=== PATIENT | male | born 1945 | race Caucasian/White ===

== ENCOUNTER 2018-04-23 19:30 | Inpatient (IN) | payer MEDICARE, MEDICAID ==
[~2018-04-23] VITALS: Ht 182.9 cm; Wt 94.3 kg
--- NOTE | 2018-04-23 19:56 | NUR ---
pt bibra from snf to er bed 13. here for medical clearance prior to [facility] psych admission. pt is already on 9340 hold for gto/gd. hold written at 1700. vss. awaiting md hassan.
--- NOTE | 2018-04-23 19:57 | NUR ---
dr constantino at bedside for eval.
--- NOTE | 2018-04-23 20:05 | NUR ---
Hien harrison in [facility] - 04/23/18 at 2056 by PIPER asphalt plant laborer at bedside for rajinderal.
--- NOTE | 2018-04-23 20:05 | NUR ---
powerhouse laborer at bedside for blood draw.
[2018-04-23 20:09] LABS: BASOPHILS % (AUTO) 0.6 % (0.0-2.0); EOSINOPHILS % (AUTO) 2.3 % (0.0-6.0); HEMATOCRIT 36 % (39-51); HEMOGLOBIN 12.4 g/dL (13.5-17.5); LYMPHOCYTES # (AUTO) 1.2 /CMM (0.8-4.8); LYMPHOCYTES % (AUTO) 19.3 % (20.0-44.0); MEAN CORPUSCULAR HEMOGLOBIN 32 PG (26.0-33.0); MEAN CORPUSCULAR HGB CONC 34 g/dl (31.0-36.0); MEAN CORPUSCULAR VOLUME 92 fL (80-96); MONOCYTES # (AUTO) 0.5 /CMM (0.1-1.30); MONOCYTES % (AUTO) 8.7 % (2.0-12.0); NEUTROPHILS # (AUTO) 4.4 /CMM (1.8-8.9); NEUTROPHILS % (AUTO) 69.1 % (43.0-81.0); PLATELET COUNT (AUTO) 180 /CMM (150-450); RDW COEFFICIENT OF VARIATION 12.4 (11.5-15.0); RED BLOOD CELL COUNT(AUTO) 3.93 MIL/uL (4.5-6.0); WHITE BLOOD COUNT (AUTO) 6.2 K/uL (4.3-11.0)
--- NOTE | 2018-04-23 20:25 | NUR ---
pt still unable to provide urine sample at this time.
[2018-04-23 20:32] LABS: ALANINE AMINOTRANSFERASE 19 U/L (12-78); ALBUMIN 2.9 g/dL (3.4-5.0); ALCOHOL, BLOOD < 3 mg/dL (0-0); ALKALINE PHOSPHATASE 74 U/L (46-116); ASPARTATE AMINOTRANSFERASE 15 U/L (15-37); BILIRUBIN,DIRECT 0.1 mg/dL (0.0-0.2); BILIRUBIN,TOTAL 0.3 mg/dL (0.2-1.0); CALCIUM, SERUM 8.8 mg/dL (8.5-10.1); CARBON DIOXIDE 32 mmol/L (21-32); CHLORIDE 107 mmol/L (98-107); CREATININE 1.2 mg/dL (0.6-1.3); GLUCOSE 132 mg/dL (74-106); SODIUM SERUM 141 mmol/L (136-145); TOTAL PROTEIN, SERUM 5.9 g/dL (6.4-8.2); UREA NITROGEN, BLOOD 26 mg/dL (7-18)
[2018-04-23 20:39] LABS: SALICYLATE 0.6 mg/dL (2.8-20.0)
[2018-04-23 20:40] LABS: ACETAMINOPHEN 0 ug/ml (10-30)
--- NOTE | 2018-04-23 20:56 | NUR ---
PT ASSIGNED GPS 217
--- NOTE | 2018-04-23 21:06 | NUR ---
report given to jayla. pt awaiting transfer to floor.
[2018-04-23] MEDS ORDERED: MAG HYDROX/AL HYDROX/SIMETH 30 ML UDC PO PRN ×2 (22:00→23:30)
[2018-04-23] MEDS ORDERED: TEMAZEPAM 7.5 MG CAPSULE PO PRN ×2 (22:00→23:30)
[2018-04-23] MEDS ORDERED: MAGNESIUM HYDROXIDE 30 ML UDC PO PRN ×2 (22:00→23:30)
[2018-04-23] MEDS ORDERED: LORAZEPAM 0.5 MG TABLET PO PRN (22:00)
[2018-04-23] MEDS ORDERED: ACETAMINOPHEN 325 MG TABLET PO PRN ×2 (22:00→23:30)
[2018-04-23] MEDS ORDERED: SERT25TA5 (22:38)
[2018-04-23] MEDS ORDERED: DONE5TAB34 (22:38)
[2018-04-23] MEDS ORDERED: METF500T6 (22:38)
[2018-04-23] MEDS ORDERED: DIVA125C5 (22:38)
[2018-04-23] MEDS ORDERED: MEMA10TA21 (22:38)
[2018-04-23] MEDS ORDERED: ATOR20TA (22:38)
[2018-04-23] MEDS ORDERED: AMLO5TAB2 (22:38)
[2018-04-23] MEDS ORDERED: TAMS0.4C34 (22:38)
[2018-04-23] MEDS ORDERED: FOLI1TAB16 (22:38)
[2018-04-23] MEDS ORDERED: ALBU1.257 IH (22:42)
[2018-04-23] MEDS ORDERED: SACC250C PO (22:42)
[2018-04-23] MEDS ORDERED: ASPI-605 PO (22:42)
[2018-04-23] MEDS ORDERED: CARV6.25 PO (22:42)
[2018-04-23] MEDS ORDERED: DOCU100C36 PO (22:42)
[2018-04-23] MEDS ORDERED: DUTA0.5C PO (22:44)
--- NOTE | 2018-04-23 23:00 | NUR ---
GPS RN NOTES: PT. SEEN BY DR. VICK AND NOTIFIED VIRGEN / STATUS , NEW ORDERS RECIVED FROM DR. VICK POL, NEW ORDES RECEIVED AND CARRIED OUT .
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
--- NOTE | 2018-04-23 23:29 | NUR ---
GPS RN NOTES PT. REFUSED BLOOD SUGAR CHECK FOR ADMISSION PROCESS AND REFUSED SKIN ASSESSMENT , ENCOURAGED FOR STILL REFUSED AND PT. BEHAVIOR VERY AGGRESSIVE, UNCOOPERTIVE , WILL CONTINUE TO ENCOURAGED TO COMPLY WITH MD REGIMEN
[2018-04-23] MEDS ORDERED: DEXTROSE 50%-WATER 50 ML DISP.SYRIN IV PRN (23:30)
[2018-04-24 00:12] VITALS: BP 132/75
[2018-04-24] MEDS ORDERED: OLANZAPINE 10 MG VIAL IM ONE (00:30)
--- NOTE | 2018-04-24 00:30 | NUR ---
GPS RN NOTES PT. BEHAVIOR WAS VERY AGGRESSIVE YELLING SCRAMING KICKING HITING, NOT FOLLOWING ANY REDIRECTIONS , NOTIFIED DR. RENE FOR PT. BEHAVIOR, NEW ORDER RECEIVED ZYPREXA 5MG IM AND NEW ORDERS RECEIVED AND CARRIED OUT .
--- NOTE | 2018-04-24 00:44 | NUR ---
GPS RN NOTES PT. BEHAVIOR VERY AGGRESSIVE YELLING SCRAMING KICKING HITING, NOT FOLLOWING ANY REDIRECTIONS , ZYPREXA 5MG IM GIVEN PER MD JEREZ, PT. TOLERATING WELL NO ACUTE DISTRESS NOTED, WILL CONTINUE TO MONITOR .
--- NOTE | 2018-04-24 00:45 | NUR ---
GPS RN NOTES CHARGE NURSE NOTIFIED PT. DAUGHTER CLIFF, REGARDING ZYPREXA IM 5 MG OF GIVEN DUE TO PT. VERY AGGRESSIVE UNCOOPERTIVE BEHAVIOR.
[2018-04-24] MEDS ORDERED: ALBUTEROL HALF STRENGTH 1.25 MG/3 ML VIAL.NEB IH PRN (01:00)
[2018-04-24] MEDS: BLOOD SUGAR DIAGNOSTIC 1 EACH STRIP IN SCH ×4 (07:53→22:00)
[2018-04-24 08:00] VITALS: BP 129/69
[2018-04-24] MEDS: DOCUSATE SODIUM 100 MG CAPSULE PO SCH (08:16)
[2018-04-24] MEDS: DONEPEZIL 5 MG TABLET PO SCH (08:16)
[2018-04-24] MEDS: ASPIRIN EC 81 MG TABLET.DR PO SCH (08:16)
[2018-04-24] MEDS: DUTASTERIDE (0.5 MG) 0.5 MG CAPSULE PO SCH (08:16)
[2018-04-24] MEDS: TAMSULOSIN 0.4 MG CAP.SR.24H PO SCH (08:16)
[2018-04-24] MEDS: CARVEDILOL 6.25 MG TABLET PO SCH ×2 (08:16→17:03)
[2018-04-24] MEDS: AMLODIPINE BESYLATE 5 MG TABLET PO SCH (08:17)
[2018-04-24] MEDS: MEMANTINE HCL 5 MG TABLET PO SCH (08:17)
[2018-04-24] MEDS: METFORMIN 500 MG TABLET PO SCH ×2 (08:17→17:03)
[2018-04-24] MEDS: FOLIC ACID 1 MG TABLET PO SCH (08:17)
[2018-04-24] MEDS: ACIDOPHILUS/BULGARICUS 1 EACH GRAN.PACK PO SCH ×2 (08:25→08:26)
[2018-04-24] MEDS: ACIDOPHILUS/BULGARICUS 1 EACH TAB.CHEW PO SCH (08:57)
[2018-04-24 10:45] LABS: CREATININE 1.1 mg/dL (0.6-1.3)
[2018-04-24 10:51] LABS: CHOLESTEROL 152 mg/dL (<200); HDL CHOLESTEROL 47 mg/dL (40-60); LDL 90 mg/dL (0-99); TRIGLYCERIDES 112 mg/dL (30-150)
--- NOTE | 2018-04-24 13:57 | NUR ---
DR. RENE GAVE AN ORDER FOR 1:1 FOR AGGRESSIVE BEHAVIOR AND NOT FOLLOWING DIRECTION.
--- NOTE | 2018-04-24 15:08 | NUR ---
INITIAL DISCHARGE PLAN: Per pts daughter Nathaly Ambrose [phone] pt will return to [facility] Address: [address], [place] [address] . SW confirmed with NANCY Melton at [facility] who confirmed pt will be accepted back to facility once stable for discharge. SW will help form a safe and proper discharge in collaboration with .
[2018-04-24 16:00] VITALS: BP 135/59
[2018-04-24] MEDS: LORAZEPAM 0.5 MG TABLET PO PRN ×2 (16:09→17:03)
[2018-04-24] MEDS: busPIRone 5 MG TABLET PO SCH (17:03)
[2018-04-24] MEDS: VALPROIC ACID 250 MG/5 ML UDC PO SCH ×2 (17:04→21:00)
--- NOTE | 2018-04-24 19:19 | NUR ---
Pt combative, aggressive, uncooperative when he is awake. refuse accucheck breakfast, lunch and dinner.
--- NOTE | 2018-04-24 19:21 | NUR ---
endorsed to credit relationship manager nurseherminia rn to show ekg to assembler billiard table for review.
[2018-04-24 20:00] VITALS: BP 159/88
[2018-04-24] MEDS: BENZTROPINE MESYLATE (1 MG) 1 MG TABLET PO SCH (21:00)
[2018-04-24] MEDS: risperiDONE-M 0.5 MG TAB.RAPDIS PO SCH (21:00)
[2018-04-24] MEDS: TEMAZEPAM 7.5 MG CAPSULE PO PRN (21:01)
[2018-04-24] MEDS: ATORVASTATIN 10 MG TABLET PO SCH (21:08)
[2018-04-25] MEDS: CARVEDILOL 6.25 MG TABLET PO SCH ×2 (09:00→17:40)
[2018-04-25] MEDS: AMLODIPINE BESYLATE 5 MG TABLET PO SCH (09:00)
[2018-04-25] MEDS: METFORMIN 500 MG TABLET PO SCH ×2 (09:00→17:39)
[2018-04-25] MEDS: busPIRone 5 MG TABLET PO SCH ×3 (09:13→17:32)
[2018-04-25] MEDS: BLOOD SUGAR DIAGNOSTIC 1 EACH STRIP IN SCH ×4 (09:17→21:10)
[2018-04-25] MEDS: DONEPEZIL 5 MG TABLET PO SCH (09:20)
[2018-04-25] MEDS: MEMANTINE HCL 5 MG TABLET PO SCH (09:20)
[2018-04-25] MEDS: VALPROIC ACID 250 MG/5 ML UDC PO SCH ×3 (09:21→21:10)
[2018-04-25] MEDS: FOLIC ACID 1 MG TABLET PO SCH (09:25)
[2018-04-25] MEDS: TAMSULOSIN 0.4 MG CAP.SR.24H PO SCH (09:25)
[2018-04-25] MEDS: ASPIRIN EC 81 MG TABLET.DR PO SCH (09:25)
--- NOTE | 2018-04-25 09:25 | NUR ---
GPS RN NOTES PATIENT REFUSED BLOOD PRESSURE TAKEN AND SOME MEDICATIONS.
[2018-04-25] MEDS: DUTASTERIDE (0.5 MG) 0.5 MG CAPSULE PO SCH (09:26)
[2018-04-25] MEDS: DOCUSATE SODIUM 100 MG CAPSULE PO SCH (09:26)
[2018-04-25] MEDS: ACIDOPHILUS/BULGARICUS 1 EACH TAB.CHEW PO SCH (09:31)
[2018-04-25 16:07] VITALS: BP 125/60
[2018-04-25 20:00] VITALS: BP 141/75
[2018-04-25] MEDS: ATORVASTATIN 10 MG TABLET PO SCH (21:10)
[2018-04-25] MEDS: BENZTROPINE MESYLATE (1 MG) 1 MG TABLET PO SCH (21:10)
[2018-04-25] MEDS: risperiDONE-M 0.5 MG TAB.RAPDIS PO SCH (21:10)
[2018-04-25] MEDS: TEMAZEPAM 7.5 MG CAPSULE PO PRN (22:22)
[2018-04-26] MEDS: BLOOD SUGAR DIAGNOSTIC 1 EACH STRIP IN SCH ×4 (07:59→22:27)
[2018-04-26] MEDS: DONEPEZIL 5 MG TABLET PO SCH (08:00)
[2018-04-26] MEDS: busPIRone 5 MG TABLET PO SCH ×3 (08:00→16:51)
[2018-04-26] MEDS: TAMSULOSIN 0.4 MG CAP.SR.24H PO SCH (08:00)
[2018-04-26] MEDS: ASPIRIN EC 81 MG TABLET.DR PO SCH (08:00)
[2018-04-26] MEDS: FOLIC ACID 1 MG TABLET PO SCH (08:00)
[2018-04-26] MEDS: VALPROIC ACID 250 MG/5 ML UDC PO SCH ×3 (08:00→20:00)
[2018-04-26] MEDS: METFORMIN 500 MG TABLET PO SCH ×2 (08:00→16:51)
[2018-04-26] MEDS: DOCUSATE SODIUM 100 MG CAPSULE PO SCH (08:00)
[2018-04-26] MEDS: DUTASTERIDE (0.5 MG) 0.5 MG CAPSULE PO SCH (08:00)
[2018-04-26] MEDS: CARVEDILOL 6.25 MG TABLET PO SCH ×2 (08:07→16:51)
[2018-04-26] MEDS: AMLODIPINE BESYLATE 5 MG TABLET PO SCH (08:08)
[2018-04-26] MEDS: ACIDOPHILUS/BULGARICUS 1 EACH TAB.CHEW PO SCH (08:08)
[2018-04-26 08:10] VITALS: BP 124/57
[2018-04-26] MEDS: INSULIN REGULAR, HUMAN 100 UNIT/ML 3 ML VIAL SQ PRN (08:12)
[2018-04-26] MEDS: LORAZEPAM 0.5 MG TABLET PO PRN (12:02)
[2018-04-26 16:00] VITALS: BP 105/58
[2018-04-26 18:59] LABS: ALANINE AMINOTRANSFERASE 23 U/L (12-78); ALBUMIN 3.1 g/dL (3.4-5.0); ALKALINE PHOSPHATASE 76 U/L (46-116); ASPARTATE AMINOTRANSFERASE 19 U/L (15-37); BILIRUBIN,TOTAL 0.4 mg/dL (0.2-1.0); CALCIUM, SERUM 8.8 mg/dL (8.5-10.1); CARBON DIOXIDE 28 mmol/L (21-32); CHLORIDE 108 mmol/L (98-107); CREATININE 1.4 mg/dL (0.6-1.3); GLUCOSE 113 mg/dL (74-106); MAGNESIUM 1.6 mg/dL (1.8-2.4); POTASSIUM 3.8 mmol/L (3.5-5.1); SODIUM SERUM 146 mmol/L (136-145); TOTAL PROTEIN, SERUM 6.2 g/dL (6.4-8.2); UREA NITROGEN, BLOOD 28 mg/dL (7-18)
[2018-04-26 19:08] LABS: APPEARANCE,URINE CLEAR (CLEAR); BILIRUBIN,URINE 1+ (NEGATIVE); BLOOD, URINE TRACE Ery/uL (NEGATIVE); COLOR,URINE DARK YELLO (YELLOW); KETONES,URINE TRACE (NEGATIVE); LEUKOCYTE ESTERASE ,URINE TRACE (NEGATIVE); NITRITE, URINE NEGATIVE (NEGATIVE); PH,URINE 5.5 (5.0-8.0); PROTEIN,URINE TRACE mg/dl (NEGATIVE); UGLUCOSE NEGATIVE (NEGATIVE)
[2018-04-26 19:51] LABS: BASOPHILS % (AUTO) 0.3 % (0.0-2.0); EOSINOPHILS % (AUTO) 1.5 % (0.0-6.0); HEMATOCRIT 37 % (39-51); HEMOGLOBIN 12.2 g/dL (13.5-17.5); LYMPHOCYTES # (AUTO) 1.3 /CMM (0.8-4.8); LYMPHOCYTES % (AUTO) 17.8 % (20.0-44.0); MEAN CORPUSCULAR HEMOGLOBIN 31 PG (26.0-33.0); MEAN CORPUSCULAR HGB CONC 33 g/dl (31.0-36.0); MEAN CORPUSCULAR VOLUME 95 fL (80-96); MONOCYTES # (AUTO) 0.5 /CMM (0.1-1.30); MONOCYTES % (AUTO) 6.8 % (2.0-12.0); NEUTROPHILS # (AUTO) 5.4 /CMM (1.8-8.9); NEUTROPHILS % (AUTO) 73.6 % (43.0-81.0); PLATELET COUNT (AUTO) 190 /CMM (150-450); RDW COEFFICIENT OF VARIATION 13.7 (11.5-15.0); WHITE BLOOD COUNT (AUTO) 7.4 K/uL (4.3-11.0)
[2018-04-26 20:00] VITALS: BP 130/67
[2018-04-26] MEDS: BENZTROPINE MESYLATE (1 MG) 1 MG TABLET PO SCH (20:00)
[2018-04-26] MEDS: risperiDONE-M 0.5 MG TAB.RAPDIS PO SCH (20:00)
[2018-04-26 20:03] LABS: BACTERIA,URINE 1+ /HPF (None Seen); SQUAMOUS EPITHELIAL CELL,UR 0-2 /HPF (None Seen)
[2018-04-26] MEDS: ATORVASTATIN 10 MG TABLET PO SCH (22:00)
--- NOTE | 2018-04-27 07:36 | NUR ---
[id number]-[id number]: BLOOD SUGAR IS 74 MG/DL AND NO INSULIN REQUIRED AT THIS TIME
--- NOTE | 2018-04-27 07:36 | NUR ---
FTQ-HS-[id number]: BLOOD SUGAR IS 74 MG/DL AND NO INSULIN COVERAGE REQUIRED Addendum: 04/28/18 at 1711 by JABIER SUE RN DUPLICATE
[2018-04-27] MEDS: BLOOD SUGAR DIAGNOSTIC 1 EACH STRIP IN SCH ×5 (07:39→22:00)
[2018-04-27] MEDS: VALPROIC ACID 250 MG/5 ML UDC PO SCH (08:42)
[2018-04-27] MEDS: TAMSULOSIN 0.4 MG CAP.SR.24H PO SCH (08:42)
[2018-04-27] MEDS: DOCUSATE SODIUM 100 MG CAPSULE PO SCH (08:42)
[2018-04-27] MEDS: busPIRone 5 MG TABLET PO SCH ×3 (08:42→17:37)
[2018-04-27] MEDS: CARVEDILOL 6.25 MG TABLET PO SCH ×2 (08:43→17:41)
[2018-04-27] MEDS: DONEPEZIL 5 MG TABLET PO SCH (08:43)
[2018-04-27] MEDS: FOLIC ACID 1 MG TABLET PO SCH (08:43)
[2018-04-27] MEDS: DUTASTERIDE (0.5 MG) 0.5 MG CAPSULE PO SCH (08:43)
[2018-04-27] MEDS: ASPIRIN EC 81 MG TABLET.DR PO SCH (08:44)
[2018-04-27] MEDS: AMLODIPINE BESYLATE 5 MG TABLET PO SCH (08:46)
[2018-04-27] MEDS: ACIDOPHILUS/BULGARICUS 1 EACH TAB.CHEW PO SCH (08:48)
[2018-04-27] MEDS: METFORMIN 500 MG TABLET PO SCH ×2 (08:48→17:37)
[2018-04-27 08:59] VITALS: BP 145/62
[2018-04-27] MEDS ORDERED: IV 1/2NS 1000 ML 1,000 ML IV ONE (10:30)
--- NOTE | 2018-04-27 12:14 | NUR ---
IUV-[id number]-[id number]: BLOOD SUGAR IS 112 MG/DL AND NO INSULIN COVERAGE REQUIRED
--- NOTE | 2018-04-27 15:30 | NUR ---
IBV-ZW-PDISH: PT REFUSED BLOOD SUGAR CHECK AT THIS TIME
[2018-04-27] MEDS: risperiDONE 0.25 MG TABLET PO SCH (15:59)
[2018-04-27 16:00] VITALS: BP 131/61
--- NOTE | 2018-04-27 20:00 | NUR ---
RN NOTES PATIENT REFUSED VITALS
[2018-04-27] MEDS: BENZTROPINE MESYLATE (1 MG) 1 MG TABLET PO SCH (20:10)
[2018-04-27] MEDS: risperiDONE-M 0.5 MG TAB.RAPDIS PO SCH (20:10)
[2018-04-27 20:52] VITALS: BP 97/55
[2018-04-27] MEDS: ATORVASTATIN 10 MG TABLET PO SCH (21:44)
[2018-04-27] MEDS: TEMAZEPAM 7.5 MG CAPSULE PO PRN (21:45)
[2018-04-27] MEDS: LORAZEPAM 0.5 MG TABLET PO PRN (23:34)
[2018-04-28 08:00] VITALS: BP 125/90
--- NOTE | 2018-04-28 08:08 | NUR ---
RUV-KC-[id number]: BLOOD SUGAR IS 85 MG/DL AND NO INSULIN COVERAGE REQUIRED AT THIS TIME
[2018-04-28] MEDS: BLOOD SUGAR DIAGNOSTIC 1 EACH STRIP IN SCH ×4 (08:13→22:39)
[2018-04-28] MEDS: risperiDONE 0.25 MG TABLET PO SCH ×3 (08:20→14:04)
[2018-04-28] MEDS: ASPIRIN EC 81 MG TABLET.DR PO SCH (08:20)
[2018-04-28] MEDS: DONEPEZIL 5 MG TABLET PO SCH (08:20)
[2018-04-28] MEDS: busPIRone 5 MG TABLET PO SCH ×3 (08:21→17:17)
[2018-04-28] MEDS: DUTASTERIDE (0.5 MG) 0.5 MG CAPSULE PO SCH (08:21)
[2018-04-28] MEDS: DOCUSATE SODIUM 100 MG CAPSULE PO SCH (08:21)
[2018-04-28] MEDS: ACIDOPHILUS/BULGARICUS 1 EACH TAB.CHEW PO SCH (08:22)
[2018-04-28] MEDS: FOLIC ACID 1 MG TABLET PO SCH (08:22)
[2018-04-28] MEDS: METFORMIN 500 MG TABLET PO SCH ×2 (08:22→17:17)
[2018-04-28] MEDS: CARVEDILOL 6.25 MG TABLET PO SCH ×2 (08:22→17:18)
[2018-04-28] MEDS: TAMSULOSIN 0.4 MG CAP.SR.24H PO SCH (08:22)
[2018-04-28] MEDS: AMLODIPINE BESYLATE 5 MG TABLET PO SCH (08:23)
[2018-04-28] MEDS ORDERED: risperiDONE 0.25 MG TABLET PO SCH (09:00)
--- NOTE | 2018-04-28 12:00 | NUR ---
[id number]-[id number]: PT ASLEEP AND REFUSED BLOOD SUGAR CHECK.
[2018-04-28 16:00] VITALS: BP 142/92
--- NOTE | 2018-04-28 17:25 | NUR ---
WAU-GB-[id number]: BLOOD SUGAR IS 79 MG/DL AND NO INSULIN COVERAGE REQUIRED AT THIS TIME
[2018-04-28 19:52] VITALS: BP 144/91
[2018-04-28] MEDS: BENZTROPINE MESYLATE (1 MG) 1 MG TABLET PO SCH (20:44)
[2018-04-28] MEDS: risperiDONE-M 0.5 MG TAB.RAPDIS PO SCH (20:45)
[2018-04-28] MEDS: TEMAZEPAM 7.5 MG CAPSULE PO PRN (20:45)
[2018-04-28] MEDS: ATORVASTATIN 10 MG TABLET PO SCH (20:45)
[2018-04-29 07:23] LABS: HEMATOCRIT 38 % (39-51); HEMOGLOBIN 13.1 g/dL (13.5-17.5); MEAN CORPUSCULAR VOLUME 92 fL (80-96); WHITE BLOOD COUNT (AUTO) 7.3 K/uL (4.3-11.0)
[2018-04-29 07:24] LABS: BASOPHILS % (AUTO) 0.5 % (0.0-2.0); EOSINOPHILS % (AUTO) 3.6 % (0.0-6.0); LYMPHOCYTES # (AUTO) 1.3 /CMM (0.8-4.8); LYMPHOCYTES % (AUTO) 17.6 % (20.0-44.0); MEAN CORPUSCULAR HEMOGLOBIN 32 PG (26.0-33.0); MEAN CORPUSCULAR HGB CONC 35 g/dl (31.0-36.0); MONOCYTES # (AUTO) 0.4 /CMM (0.1-1.30); MONOCYTES % (AUTO) 5.5 % (2.0-12.0); NEUTROPHILS # (AUTO) 5.3 /CMM (1.8-8.9); NEUTROPHILS % (AUTO) 72.8 % (43.0-81.0); PLATELET COUNT (AUTO) 201 /CMM (150-450); RDW COEFFICIENT OF VARIATION 13.4 (11.5-15.0)
[2018-04-29 07:31] LABS: ALANINE AMINOTRANSFERASE 25 U/L (12-78); ALKALINE PHOSPHATASE 82 U/L (46-116); ASPARTATE AMINOTRANSFERASE 25 U/L (15-37); BILIRUBIN,TOTAL 0.7 mg/dL (0.2-1.0); CALCIUM, SERUM 8.6 mg/dL (8.5-10.1); CARBON DIOXIDE 29 mmol/L (21-32); CHLORIDE 108 mmol/L (98-107); CREATININE 0.9 mg/dL (0.6-1.3); GLUCOSE 83 mg/dL (74-106); POTASSIUM 3.7 mmol/L (3.5-5.1); SODIUM SERUM 145 mmol/L (136-145); TOTAL PROTEIN, SERUM 6.2 g/dL (6.4-8.2); UREA NITROGEN, BLOOD 21 mg/dL (7-18)
--- NOTE | 2018-04-29 07:32 | NUR ---
KYU-GZ-GXCLU: BLOOD SUGAR IS 80 MG/DL AND NO INSULIN COVERAGE REQUIRED
[2018-04-29] MEDS: BLOOD SUGAR DIAGNOSTIC 1 EACH STRIP IN SCH ×4 (07:50→22:00)
[2018-04-29 08:00] VITALS: BP 142/78
[2018-04-29] MEDS: DOCUSATE SODIUM 100 MG CAPSULE PO SCH (08:05)
[2018-04-29] MEDS: CARVEDILOL 6.25 MG TABLET PO SCH ×2 (08:05→16:18)
[2018-04-29] MEDS: busPIRone 5 MG TABLET PO SCH ×3 (08:05→16:17)
[2018-04-29] MEDS: DUTASTERIDE (0.5 MG) 0.5 MG CAPSULE PO SCH (08:06)
[2018-04-29] MEDS: risperiDONE 0.25 MG TABLET PO SCH ×3 (08:06→16:17)
[2018-04-29] MEDS: METFORMIN 500 MG TABLET PO SCH ×2 (08:06→16:17)
[2018-04-29] MEDS: TAMSULOSIN 0.4 MG CAP.SR.24H PO SCH (08:06)
[2018-04-29] MEDS: FOLIC ACID 1 MG TABLET PO SCH (08:06)
[2018-04-29] MEDS: ASPIRIN EC 81 MG TABLET.DR PO SCH (08:06)
[2018-04-29] MEDS: AMLODIPINE BESYLATE 5 MG TABLET PO SCH (08:06)
[2018-04-29] MEDS: Z GUARD REMEDY 2 OZ OINT TP SCH (08:07)
[2018-04-29] MEDS: ACIDOPHILUS/BULGARICUS 1 EACH TAB.CHEW PO SCH (08:25)
--- NOTE | 2018-04-29 10:07 | NUR ---
WOUND CARE CONSULT: PT PRESENTS WITH INCONTINENCE AND SACRAL SCARRING AT GLUTEAL CREASE AREA WITH BLANCHABLE REDNESS TO BUTTOCKS. RECOMMENDATIONS MADE FOR SKIN PROTECTION AND DISCUSSED WITH NURSING STAFF. ALL SKIN PROTECTION MEASURES IN PLACE. CURRENT [place] SCORE IS 19. WILL SEE PRN. RAMSEY IN AGREEMENT WITH PLAN OF CARE. Addendum: 04/29/18 at 1009 by DAWNA BARNEY WNDNU Amended: Links added.
[2018-04-29] MEDS: LORAZEPAM 0.5 MG TABLET PO PRN ×2 (11:50→20:42)
--- NOTE | 2018-04-29 11:50 | NUR ---
BMS-HZ-KQISW: GAVE ATIVAN 0.5 MG PO DUE TO INCREASED ANXIETY UPON PT REQUEST AND WILL CONTINUE TO MONITOR FOR EFFECTIVENESS OF MEDICATION
--- NOTE | 2018-04-29 11:56 | NUR ---
VQE-LC-[id number]: BLOOD SUGAR IS 94 MG/DL AND NO INSULIN COVERAGE REQUIRED AT THIS TIME
[2018-04-29 16:00] VITALS: BP 142/57
[2018-04-29] MEDS: OXCARBAZEPINE 150 MG TABLET PO SCH (16:17)
--- NOTE | 2018-04-29 16:33 | NUR ---
KBH-NV-ZJQAU: BLOOD SUGAR IS 80 MG/DL AND NO COVERAGE REQUIRED AT THIS TIME.
[2018-04-29 20:14] VITALS: BP 151/66
[2018-04-29] MEDS: BENZTROPINE MESYLATE (1 MG) 1 MG TABLET PO SCH (20:42)
[2018-04-29] MEDS: risperiDONE-M 0.5 MG TAB.RAPDIS PO SCH (20:42)
[2018-04-29] MEDS: ATORVASTATIN 10 MG TABLET PO SCH (20:42)
[2018-04-29] MEDS: TEMAZEPAM 7.5 MG CAPSULE PO PRN (21:41)
[2018-04-29] MEDS: INSULIN REGULAR, HUMAN 100 UNIT/ML 3 ML VIAL SQ PRN (22:38)
[2018-04-30] MEDS: BLOOD SUGAR DIAGNOSTIC 1 EACH STRIP IN SCH ×4 (07:55→21:11)
[2018-04-30 08:00] VITALS: BP 150/104
[2018-04-30] MEDS: busPIRone 5 MG TABLET PO SCH ×4 (08:27→18:17)
[2018-04-30] MEDS: FOLIC ACID 1 MG TABLET PO SCH (08:27)
[2018-04-30] MEDS: ACIDOPHILUS/BULGARICUS 1 EACH TAB.CHEW PO SCH (08:28)
[2018-04-30] MEDS: ASPIRIN EC 81 MG TABLET.DR PO SCH (08:28)
[2018-04-30] MEDS: DOCUSATE SODIUM 100 MG CAPSULE PO SCH (08:28)
[2018-04-30] MEDS: CARVEDILOL 6.25 MG TABLET PO SCH ×3 (08:28→18:16)
[2018-04-30] MEDS: AMLODIPINE BESYLATE 5 MG TABLET PO SCH (08:29)
[2018-04-30] MEDS: TAMSULOSIN 0.4 MG CAP.SR.24H PO SCH (08:29)
[2018-04-30] MEDS: METFORMIN 500 MG TABLET PO SCH ×3 (08:29→18:16)
[2018-04-30] MEDS: DUTASTERIDE (0.5 MG) 0.5 MG CAPSULE PO SCH (08:29)
[2018-04-30] MEDS: risperiDONE 0.25 MG TABLET PO SCH ×4 (08:37→18:18)
[2018-04-30] MEDS: OXCARBAZEPINE 150 MG TABLET PO SCH ×4 (08:37→18:18)
[2018-04-30] MEDS: Z GUARD REMEDY 2 OZ OINT TP SCH (10:57)
[2018-04-30 16:00] VITALS: BP 143/65
--- NOTE | 2018-04-30 18:28 | NUR ---
RN NOTES BS-100 MG/DL, PATIENT TOO SEDATED, UNABLE ADMINISTERED SCHEDULED MEDICATION, V/S STABLE, 1;1 SITTER NEXT TO THE BED FOR SAFETY. PATIENT CONFUSED, A/O X1. CALL GUZMAN NEAR TO REACH, SAFETY PRECAUTION MAINTAINED ALL THE TIME. ENDORSED ONCOMING NURSE FOR PLAN OF CARE.
[2018-04-30 19:59] VITALS: BP 131/66
[2018-04-30] MEDS: BENZTROPINE MESYLATE (1 MG) 1 MG TABLET PO SCH (20:20)
[2018-04-30] MEDS: risperiDONE-M 0.5 MG TAB.RAPDIS PO SCH (20:21)
[2018-04-30] MEDS: ATORVASTATIN 10 MG TABLET PO SCH (21:11)
[2018-04-30] MEDS: INSULIN REGULAR, HUMAN 100 UNIT/ML 3 ML VIAL SQ PRN (21:14)
[2018-05-01] MEDS: BLOOD SUGAR DIAGNOSTIC 1 EACH STRIP IN SCH ×4 (07:44→21:35)
[2018-05-01 08:13] VITALS: BP 169/73
[2018-05-01] MEDS: DOCUSATE SODIUM 100 MG CAPSULE PO SCH (08:19)
[2018-05-01] MEDS: OXCARBAZEPINE 150 MG TABLET PO SCH ×3 (08:19→16:32)
[2018-05-01] MEDS: FOLIC ACID 1 MG TABLET PO SCH (08:19)
[2018-05-01] MEDS: TAMSULOSIN 0.4 MG CAP.SR.24H PO SCH (08:19)
[2018-05-01] MEDS: DUTASTERIDE (0.5 MG) 0.5 MG CAPSULE PO SCH (08:20)
[2018-05-01] MEDS: busPIRone 5 MG TABLET PO SCH ×3 (08:20→16:32)
[2018-05-01] MEDS: ASPIRIN EC 81 MG TABLET.DR PO SCH (08:20)
[2018-05-01] MEDS: METFORMIN 500 MG TABLET PO SCH ×2 (08:20→16:32)
[2018-05-01] MEDS: CARVEDILOL 6.25 MG TABLET PO SCH ×2 (08:21→16:33)
[2018-05-01] MEDS: ACIDOPHILUS/BULGARICUS 1 EACH TAB.CHEW PO SCH (08:21)
[2018-05-01] MEDS: AMLODIPINE BESYLATE 5 MG TABLET PO SCH (08:21)
[2018-05-01] MEDS: risperiDONE 0.25 MG TABLET PO SCH ×3 (08:23→16:32)
[2018-05-01] MEDS: Z GUARD REMEDY 2 OZ OINT TP SCH (08:27)
[2018-05-01] MEDS: LORAZEPAM 0.5 MG TABLET PO PRN (08:58)
--- NOTE | 2018-05-01 09:04 | NUR ---
GPS/RN-NOTES NOTED PATIENT VERY ANXIOUS ,DISROBING GETTING OUT OF HIS BED UNASSISTED. ATIVAN 0.5MG P.O GIVEN PRN ORDER. WILL CONT. ON 1:1 MONITORING FOR SAFETY AND BEHAVIOR.
--- NOTE | 2018-05-01 10:30 | NUR ---
GPS/RN-NOTES PATIENT IN THE DAY ROOM UP IN THE PIERO CHAIR CALM AND COOPERATIVE. NO ACUTE DISTRESS NOTED.
[2018-05-01] MEDS ORDERED: risperiDONE 0.25 MG TABLET PO SCH (13:00)
[2018-05-01 16:10] VITALS: BP 112/51
[2018-05-01] MEDS: INSULIN REGULAR, HUMAN 100 UNIT/ML 3 ML VIAL SQ PRN (17:26)
[2018-05-01 20:00] VITALS: BP 114/57
[2018-05-01] MEDS: BENZTROPINE MESYLATE (1 MG) 1 MG TABLET PO SCH (20:00)
[2018-05-01] MEDS: risperiDONE-M 0.5 MG TAB.RAPDIS PO SCH (20:00)
[2018-05-01 20:04] VITALS: BP 114/57
[2018-05-01] MEDS: ATORVASTATIN 10 MG TABLET PO SCH (21:35)
--- NOTE | 2018-05-01 21:37 | NUR ---
GPS/FOOD TECHNOLOGY TEACHER NOTES: PT. REFUSED HS MEDS. OFFERED 3X. EXPLAINED RISK AND BENEFITS. PT. STILL REFUSED.
[2018-05-02] MEDS: risperiDONE 0.25 MG TABLET PO SCH ×3 (07:58→17:26)
[2018-05-02] MEDS: busPIRone 5 MG TABLET PO SCH ×3 (07:58→17:26)
[2018-05-02] MEDS: BLOOD SUGAR DIAGNOSTIC 1 EACH STRIP IN SCH ×4 (07:58→22:03)
[2018-05-02] MEDS: ASPIRIN EC 81 MG TABLET.DR PO SCH (07:58)
[2018-05-02] MEDS: ACIDOPHILUS/BULGARICUS 1 EACH TAB.CHEW PO SCH (07:58)
[2018-05-02] MEDS: DOCUSATE SODIUM 100 MG CAPSULE PO SCH (07:59)
[2018-05-02] MEDS: METFORMIN 500 MG TABLET PO SCH ×2 (07:59→17:26)
[2018-05-02] MEDS: CARVEDILOL 6.25 MG TABLET PO SCH ×2 (07:59→17:00)
[2018-05-02 08:00] VITALS: BP 101/62
[2018-05-02] MEDS: AMLODIPINE BESYLATE 5 MG TABLET PO SCH (08:00)
[2018-05-02] MEDS: TAMSULOSIN 0.4 MG CAP.SR.24H PO SCH (08:00)
[2018-05-02] MEDS: FOLIC ACID 1 MG TABLET PO SCH (08:00)
[2018-05-02] MEDS: Z GUARD REMEDY 2 OZ OINT TP SCH (08:01)
[2018-05-02] MEDS: DUTASTERIDE (0.5 MG) 0.5 MG CAPSULE PO SCH (08:04)
[2018-05-02] MEDS: OXCARBAZEPINE 150 MG TABLET PO SCH ×3 (08:04→17:26)
[2018-05-02 08:05] LABS: CALCIUM, SERUM 8.9 mg/dL (8.5-10.1); CARBON DIOXIDE 30 mmol/L (21-32); CHLORIDE 107 mmol/L (98-107); CREATININE 1.5 mg/dL (0.6-1.3); GLUCOSE 107 mg/dL (74-106); POTASSIUM 3.6 mmol/L (3.5-5.1); SODIUM SERUM 144 mmol/L (136-145); UREA NITROGEN, BLOOD 22 mg/dL (7-18)
[2018-05-02 16:00] VITALS: BP 100/59
[2018-05-02 20:00] VITALS: BP 152/76
[2018-05-02] MEDS: risperiDONE-M 0.5 MG TAB.RAPDIS PO SCH (21:39)
[2018-05-02] MEDS: BENZTROPINE MESYLATE (1 MG) 1 MG TABLET PO SCH (21:40)
[2018-05-02] MEDS: ATORVASTATIN 10 MG TABLET PO SCH (21:40)
[2018-05-02] MEDS: TEMAZEPAM 7.5 MG CAPSULE PO PRN (21:40)
[2018-05-03 08:00] VITALS: BP 124/59
[2018-05-03] MEDS: risperiDONE 0.25 MG TABLET PO SCH ×3 (08:20→16:18)
[2018-05-03] MEDS: DUTASTERIDE (0.5 MG) 0.5 MG CAPSULE PO SCH (08:20)
[2018-05-03] MEDS: busPIRone 5 MG TABLET PO SCH ×3 (08:20→16:18)
[2018-05-03] MEDS: FOLIC ACID 1 MG TABLET PO SCH (08:20)
[2018-05-03] MEDS: DOCUSATE SODIUM 100 MG CAPSULE PO SCH (08:20)
[2018-05-03] MEDS: BLOOD SUGAR DIAGNOSTIC 1 EACH STRIP IN SCH ×4 (08:20→21:43)
[2018-05-03] MEDS: TAMSULOSIN 0.4 MG CAP.SR.24H PO SCH (08:20)
[2018-05-03] MEDS: METFORMIN 500 MG TABLET PO SCH ×2 (08:20→16:18)
[2018-05-03] MEDS: ACIDOPHILUS/BULGARICUS 1 EACH TAB.CHEW PO SCH (08:20)
[2018-05-03] MEDS: CARVEDILOL 6.25 MG TABLET PO SCH ×2 (08:21→16:22)
[2018-05-03] MEDS: OXCARBAZEPINE 150 MG TABLET PO SCH ×3 (08:21→16:18)
[2018-05-03] MEDS: ASPIRIN EC 81 MG TABLET.DR PO SCH (08:21)
[2018-05-03] MEDS: AMLODIPINE BESYLATE 5 MG TABLET PO SCH (08:21)
[2018-05-03] MEDS: Z GUARD REMEDY 2 OZ OINT TP SCH (08:25)
[2018-05-03 16:00] VITALS: BP 137/95
--- NOTE | 2018-05-03 19:20 | NUR ---
RN NOTES RECEIVED PT IN ROOM AND UP IN PIERO CHAIR, CONFUSED, NO SOB NOTED, BREATHING EVEN AND UNLABORED, IN NO ACUTE DISTRESS. ALL PATIENT'S NEEDS ATTENDED TO AT THIS TIME. 1:1 SITTER PRESENT BEDSIDE. WILL CONTINUE TO MONITOR.
[2018-05-03 20:00] VITALS: BP 103/50
[2018-05-03] MEDS: BENZTROPINE MESYLATE (1 MG) 1 MG TABLET PO SCH (20:22)
[2018-05-03] MEDS: risperiDONE-M 0.5 MG TAB.RAPDIS PO SCH (20:23)
[2018-05-03] MEDS: ATORVASTATIN 10 MG TABLET PO SCH (21:26)
[2018-05-03] MEDS: TEMAZEPAM 7.5 MG CAPSULE PO PRN (21:44)
[2018-05-04] MEDS: BLOOD SUGAR DIAGNOSTIC 1 EACH STRIP IN SCH ×4 (07:30→22:37)
--- NOTE | 2018-05-04 07:43 | NUR ---
IRZ-LR-[id number]: BLOOD SUGAR IS 93 MG.DL AND NO INSULIN COVERAGE REQUIRED
[2018-05-04 08:00] VITALS: BP 98/56
[2018-05-04] MEDS: busPIRone 5 MG TABLET PO SCH ×3 (08:48→16:11)
[2018-05-04] MEDS: OXCARBAZEPINE 150 MG TABLET PO SCH ×3 (08:49→16:11)
[2018-05-04] MEDS: CARVEDILOL 6.25 MG TABLET PO SCH ×2 (08:49→16:15)
[2018-05-04] MEDS: METFORMIN 500 MG TABLET PO SCH ×2 (08:49→16:11)
[2018-05-04] MEDS: ASPIRIN EC 81 MG TABLET.DR PO SCH (08:49)
[2018-05-04] MEDS: risperiDONE 0.25 MG TABLET PO SCH ×3 (08:49→16:11)
[2018-05-04] MEDS: DUTASTERIDE (0.5 MG) 0.5 MG CAPSULE PO SCH (08:49)
[2018-05-04] MEDS: ACIDOPHILUS/BULGARICUS 1 EACH TAB.CHEW PO SCH (08:49)
[2018-05-04] MEDS: DOCUSATE SODIUM 100 MG CAPSULE PO SCH (08:49)
[2018-05-04] MEDS: FOLIC ACID 1 MG TABLET PO SCH (08:49)
[2018-05-04] MEDS: TAMSULOSIN 0.4 MG CAP.SR.24H PO SCH (08:49)
[2018-05-04] MEDS: AMLODIPINE BESYLATE 5 MG TABLET PO SCH (08:50)
[2018-05-04] MEDS: Z GUARD REMEDY 2 OZ OINT TP SCH (08:50)
--- NOTE | 2018-05-04 11:03 | NUR ---
GPC-SE-[id number]: BLOOD SUGAR IS 98 MG.DL AND NO INSULIN COVERAGE REQUIRED
--- NOTE | 2018-05-04 16:00 | NUR ---
FCT-[id number]: BLOOD SUGAR IS 92 MG/DL AND NO INSULIN COVERAGE REQUIRED
[2018-05-04 16:08] VITALS: BP 138/72
[2018-05-04 19:49] VITALS: BP 116/74
--- NOTE | 2018-05-04 20:04 | NUR ---
GPS RN NOTES PT. TRANSFER TO MED SURG OVERFLOW IN ROOM #219. REPORTS GIVEN TO SE ABRAHAM , PT TRANSFER IN STABLE CONDITION AND PT. TRANSFER WITH ALL BELONGINGS AND CHART. NO ACUTE DISTRESS NOTED, ACCOMPANIED BY STAFF MEMEBER.
--- NOTE | 2018-05-04 20:08 | NUR ---
RN NOTES (GPS OVERFLOW TRANSFER) RECEIVED REPORT FROM GPS RNCYN. Pt ARRIVED TO THE FLOOR. NO S/S OF ACUTE DISTRESS OR SOB NOTED. Pt IS [place] SPEAKING ONLY, CONFUSED, WITH ON & OFF COMBATIVE BEHAVIOR. Pt LOOKS COMFORTABLE IN BED. SITTER AT BEDSIDE. ON A 5250 HOLD EXP ON 05/10/18. NO IV ACCESS. SAFETY MEASURES IN PLACE. BED LOW, LOCKED, HOB ELEVATED, & SIDE RAILS UP FOR SAFETY. WILL CONTINUE TO MONITOR Pt THROUGHOUT THE NIGHT.
[2018-05-04 20:13] VITALS: BP 116/74
[2018-05-04] MEDS: risperiDONE-M 0.5 MG TAB.RAPDIS PO SCH (20:47)
[2018-05-04] MEDS: BENZTROPINE MESYLATE (1 MG) 1 MG TABLET PO SCH (20:47)
[2018-05-04] MEDS: ATORVASTATIN 10 MG TABLET PO SCH (20:57)
[2018-05-04 22:00] VITALS: BP 118/63
--- NOTE | 2018-05-04 22:41 | NUR ---
RN NOTES HS ACCUCHECK BG 107. NO INSULIN COVERAGE NEEDED AT THIS TIME.
[2018-05-05] MEDS: BLOOD SUGAR DIAGNOSTIC 1 EACH STRIP IN SCH (06:33)
--- NOTE | 2018-05-05 06:35 | NUR ---
RN NOTES AC ACCUCHECK BG 95. NO INSULIN COVERAGE NEEDED AT THIS TIME.
--- NOTE | 2018-05-05 06:50 | NUR ---
RN GPS OVERFLOW CLOSING NOTES NO SIGNIFICANT CHANGES IN Pt's CONDITION. Pt REMAINS STABLE AT THIS TIME. NO S/S OF ACUTE DISTRESS OR SOB NOTED DURING THE NIGHT. ALL NEEDS MET AND ATTENDED TO. SAFETY MEASURES IN PLACE. BED LOW, LOCKED, HOB ELEVATED, & SIDE RAILS UP. SITTER AT BEDSIDE. WILL ENDORSE TO DAYSHIFT RN FOR Pt's ROCÍO.
--- NOTE | 2018-05-05 07:15 | NUR ---
RN OPENING NOTES RECEIVED PATIENT IN BED RESTING. A/OX1-2, CONFUSED, PASHTO SPEAKING. NO ACUTE DISTRESS, NO SOB. NO S/S OF PAIN OR DISCOMFORT. KEPT PATIENT COMFORTABLE. SITTER AT BEDSIDE FOR SAFETY. BED IN LOW/LOCKED POSITION, SIDERAILS UPX2, CALL LIGHT IN REACH. WILL CONTINUE TO MONITOR ACCORDINGLY.
[2018-05-05 07:35] LABS: CALCIUM, SERUM 8.6 mg/dL (8.5-10.1); CARBON DIOXIDE 28 mmol/L (21-32); CHLORIDE 107 mmol/L (98-107); GLUCOSE 93 mg/dL (74-106); POTASSIUM 3.8 mmol/L (3.5-5.1); SODIUM SERUM 143 mmol/L (136-145); UREA NITROGEN, BLOOD 24 mg/dL (7-18)
[2018-05-05 08:00] VITALS: BP 141/77
[2018-05-05] MEDS: TAMSULOSIN 0.4 MG CAP.SR.24H PO SCH (08:34)
[2018-05-05] MEDS: risperiDONE 0.25 MG TABLET PO SCH (08:34)
[2018-05-05] MEDS: DUTASTERIDE (0.5 MG) 0.5 MG CAPSULE PO SCH (08:34)
[2018-05-05] MEDS: DOCUSATE SODIUM 100 MG CAPSULE PO SCH (08:34)
[2018-05-05] MEDS: ASPIRIN EC 81 MG TABLET.DR PO SCH (08:35)
[2018-05-05] MEDS: busPIRone 5 MG TABLET PO SCH (08:35)
[2018-05-05] MEDS: CARVEDILOL 6.25 MG TABLET PO SCH (08:35)
[2018-05-05 08:36] VITALS: BP 141/77
[2018-05-05] MEDS: AMLODIPINE BESYLATE 5 MG TABLET PO SCH (08:36)
[2018-05-05] MEDS: METFORMIN 500 MG TABLET PO SCH (08:43)
[2018-05-05] MEDS: ACIDOPHILUS/BULGARICUS 1 EACH TAB.CHEW PO SCH (08:43)
[2018-05-05] MEDS: OXCARBAZEPINE 150 MG TABLET PO SCH (08:43)
[2018-05-05] MEDS: FOLIC ACID 1 MG TABLET PO SCH (08:43)
--- NOTE | 2018-05-05 12:30 | NUR ---
RN NOTES REFUSED SKIN PHOTOS
--- NOTE | 2018-05-05 12:45 | NUR ---
DISCHARGED PATIENT IN STABLE CONDITION, PICKED UP BY RESTAURANT CREW PERSON. REPORT GIVEN TO SE HAIR AT [facility], DISCHARGE INSTRUCTIONS GIVEN, VERBALIZED UNDERSTANDING. ALL BELONGINGS RETURNED. NAME BAND REMOVED.
--- NOTE | 2018-05-05 13:44 | NUR ---
DISCHARGE NOTE: Pt was discharged at 12:00pm via [facility] ambulance trip #[id number] to [facility] ([facility]) Address: [address] [place] [address] . Pts daughter Nathaly [phone] was notified and agreed with discharge plan. Pts mood was pleasant with congruent affect. Pt denied visual/auditory hallucinations and denied visual/auditory hallucinations. Pt willl be under the medical care of Psychiatrist: Dr. Zaira Ga [address] [address] [phone] and Sales Outfitter: Dr. Angelique Marion Address: [address] [facility] [address] [address] . The multidisciplinary exitcare form was done, printed, signed, and given to the patient.
== END 2018-05-05 14:39 | DRG 885 ==
LOC: ER 19:33 → GPS 21:29 → GPSOV2 05-04 20:04
PROVIDERS: ADMIT Psychiatry & Neurology Psychosomatic Medicine; ATTEND Internal Medicine
DX: F23 Brief psychotic disorder (principal); F01.50 Vascular dementia, unspecified severity, without behavioral disturbance, psychotic disturbance, mood disturbance, and anxiety; N17.9 Acute kidney failure, unspecified; N18.9 Chronic kidney disease, unspecified; E11.65 Type 2 diabetes mellitus with hyperglycemia; I13.0 Hypertensive heart and chronic kidney disease with heart failure and stage 1 through stage 4 chronic kidney disease, or unspecified chronic kidney disease; F25.0 Schizoaffective disorder, bipolar type; N40.0 Benign prostatic hyperplasia without lower urinary tract symptoms; J44.9 Chronic obstructive pulmonary disease, unspecified; I50.9 Heart failure, unspecified; I25.10 Atherosclerotic heart disease of native coronary artery without angina pectoris; F03.90 Unspecified dementia, unspecified severity, without behavioral disturbance, psychotic disturbance, mood disturbance, and anxiety; F41.9 Anxiety disorder, unspecified; F32.9 Major depressive disorder, single episode, unspecified; Z85.51 Personal history of malignant neoplasm of bladder; I48.91 Unspecified atrial fibrillation; E11.22 Type 2 diabetes mellitus with diabetic chronic kidney disease; E78.5 Hyperlipidemia, unspecified
CPT/HCPCS: 36415; 80048-TC; 80053-TC; 80061-TC; 80076-TC; 81000-TC; 82565-TC; 82962-TC; 83735-TC; 85025-TC; 87081-TC; 87086-TC; 97110-TC; 97116-TC; 97530-TC; A4606; G0480; J1815; J3490; Z7610